=== PATIENT | female | born 1975 | race Caucasian/White ===

== ENCOUNTER → 2019-09-23 | Outpatient (CLI) | payer BC ==
--- NOTE | 2019-09-27 10:29 | Diagnostic Imaging Report ---
INDICATION: Routine screening. Comparison is made with prior mammogram from 03/10/2018. 2-D and 3-D bilateral screening mammography was performed with CAD. Both breasts are heterogeneously dense, limiting the sensitivity of mammography. No mass or malignant-appearing microcalcifications are identified. Axillae are unremarkable. IMPRESSION: BI-RADS Category 1 No mammographic features suspicious for malignancy are identified. ACR BI-RADS Category 1: Negative. Result letter will be mailed to the patient. Note: At least 10% of breast cancer is not imaged by mammography. Dictated by: Dictated on workstation # [id number]
== END ==
LOC: RAD 07:55
PROVIDERS: ATTEND Obstetrics & Gynecology
DX: Z12.31 Encounter for screening mammogram for malignant neoplasm of breast (principal)
CPT/HCPCS: 77067

== ENCOUNTER → 2020-01-21 | Outpatient (CLI) | payer BC ==
[~2020-01-21] MED LIST: FERR-84 PO; MULT-884 PO; PROG200C14 PO
--- NOTE | 2020-01-21 11:03 | Diagnostic Imaging Report ---
PROCEDURE: US Non-ob pelvis comp/trans. TECHNIQUE: Multiple realtime grayscale images were obtained of the pelvis in various projections endovaginally. Transabdominal imaging was also performed. INDICATION: Abnormal uterine bleeding. FINDINGS: The uterus is anteverted measuring 10.1 x 5.4 x 6.7 cm. No myometrial mass is detected. Endometrium is approximately 16 mm in thickness. There is some endometrial heterogeneity. There is a somewhat nodular region adjacent to or arising from within the endometrium measuring 1.7 x 1.2 x 1.6 cm. This does show some internal vascularity. Right ovary measures 3.7 x 2.4 x 2.4 cm and the left ovary measures 4.5 x 1.7 x 2.7 cm. Both ovaries contain small follicles. There is blood flow to both ovaries. No adnexal mass or free fluid is seen. There are small cervical nabothian cysts. IMPRESSION: 1. Endometrial thickening and heterogeneity. There is a 17 mm nodule arising from within or immediately adjacent to the endometrium, suggestive of either endometrial polyp versus submucosal fibroid. No other significant abnormality is detected. Dictated by: Dictated on workstation # [id number]
== END ==
LOC: RAD 08:46
PROVIDERS: ATTEND Obstetrics & Gynecology
DX: E28.2 Polycystic ovarian syndrome (principal); N92.0 Excessive and frequent menstruation with regular cycle; N85.8 Other specified noninflammatory disorders of uterus
CPT/HCPCS: 76830; 76856

== ENCOUNTER 2020-01-26 05:34 | Outpatient (RCR) | payer BC ==
[~2020-01-26] VITALS: Ht 157.5 cm; Wt 100.0 kg
[2020-01-28] MEDS ORDERED: OXYC5TAB96 PO (14:56)
[2020-01-28] MEDS ORDERED: ACET-2267 PO (14:56)
[2020-01-28] MEDS ORDERED: IBUP-1773 PO (14:56)
== END 2020-01-26 12:28 | disposition home or self-care (01) ==
LOC: PREOP 05:34
PROVIDERS: ATTEND Obstetrics & Gynecology
DX: Z01.818 Encounter for other preprocedural examination (principal); Z11.59 Encounter for screening for other viral diseases
CPT/HCPCS: 87635

== ENCOUNTER 2020-01-28 12:00 | Day surgery (SDC) | payer BC ==
[2020-01-28] VITALS (10 sets, daily range): BP systolic 103–150; BP diastolic 66–97
[~2020-01-28] VITALS: Ht 157.5 cm; Wt 100.0 kg
[2020-01-28] MEDS ORDERED: LACTATED RINGERS 1,000 ML IV PRN (12:12)
[2020-01-28] MEDS ORDERED: metroNIDAZOLE 500MG/100ML IVPB 100 ML IV ONE (12:15)
[2020-01-28] MEDS ORDERED: ceFAZolin INJECTION 1,000 MG in WATER (STERILE) FOR INJECTION 10 ML IV ONE (12:15)
--- OUTSIDE RECORDS SUMMARY | 2020-01-28 12:25 | XMS REPORT | CCD ---
Author Author Jess Andres D.O. Organization ANA MARIA ANDRES DO [facility] Address [address] [place] [address] Phone Care Team Providers Care Oil Well Driller Name Role Phone PP Unavailable CCM Unavailable Summary Purpose Interface Exchange Insurance Providers Payer name Policy type / Coverage type Covered alliance party ID Effective Begin Date Effective End Date [facility] [id number] Unknown Family history Grandfather Diagnosis Age At Onset Diabetes mellitus Type 2 Unknown Cerebrovascular disease Unknown Mother Diagnosis Age At Onset No Family Disease Entered N/A Grandmother Diagnosis Age At Onset No Family Disease Entered N/A Father Diagnosis Age At Onset No Family Disease Entered N/A Grandfather Diagnosis Age At Onset Mitral valve prolapse Unknown Social History Social History Element Codes Description Effective Dates Marital status Unknown 04/15/2019 Number of children Unknown 3 04/15/2019 Employment Unknown Currently employed [employer] 04/15/[address]: 643003608 Has never smoked or chewed tobacco 04/15/[address]: 685009 Currently drinks alcohol 04/15 Frequency of drinks SNOMED CT: 080655094 1-4 drinks per week 07/2019 Has the patient ever used illegal drugs? Unknown Has nev er used illegal drugs 04/15/2019 Allergies, Adverse Reactions, Alerts Substance Reaction Codes Entered Date Inactivated Date Status * NO KNOWN ENVIRONMENTAL ALLERGIES Unknown 04/15/2019 N o Inactive Date Active * NO KNOWN DRUG ALLERGIES Unknown 04/15/2019 No Inactiv e Date Active _ Unknown 04/15/2019 No Inactive Date Active Problems Condition Codes Effective Dates Condition Status Acute suppurative otitis media of left ear ICD-9: 382. 00 ICD-10: H66.002 08/26/2019 Active Upper respiratory infection ICD-9: 465.9 ICD-10: J06.9 08/26/2019 Active Encounter for general adult medical examination withou t abnormal findings ICD-9: V70.9 ICD-10: Z00.00 04/19/2019 Active Enteroviral vesicular pharyngitis ICD-9: 074.0 ICD-10: B08.5 04/15/2019 Active Plantar fascial fibromatosis ICD-9: 728.71 ICD-10: M72.2 04/15/2019 Active Sacrococcygeal disorders, not elsewhere classified ICD -9: 724.6 ICD-10: M53.3 04/15/2019 Active Medications Medication Codes Instructions Start Date Stop Date Status Fill Instructions Voltaren 1 % topical gel RxNorm: 045149 1 Gram(s) TOP QID to foot 0 04/15/2019 08/12/2019 Inactive Vitamin D2 oral RxNorm: 4018 oral No Start Date Active Prometrium 200 mg capsule RxNorm: 604583 1 Capsule(s) PO as nee ded No Start Date Active Multivitamin And Mineral tablet RxNorm: 1 Tablet(s) PO QD No Start Date Active Medication Administered No Medication Administered data Immunizations No Immunization data Results Observation Observation Code Item Item Code Result Date S ervice Location COMPREHENSIVE METABOLIC 71274 AST 16 U/L 2018 Unknown COMPREHENSIVE METABOLIC 80061 ALT 19 U/L 2018 Unknown COMPREHENSIVE METABOLIC 48667 BUN 13 mg/dL 2018 Unknown COMPREHENSIVE METABOLIC 59441 ALBUMIN 3.8 g/dL 2018 Unknown COMPREHENSIVE METABOLIC 72067 CHLORIDE 105 mmol/L 04/22 Unknown COMPREHENSIVE METABOLIC 24553 Bili Total 0.5 mg/dL 04/22 Unknown COMPREHENSIVE METABOLIC 05194 ALK PHOS 58 U/L 2018 Unknown COMPREHENSIVE METABOLIC 36374 SODIUM 141 mmol/L 04/22 Unknown COMPREHENSIVE METABOLIC 46989 CREATININE 0.78 mg/dL 04/04 Unknown COMPREHENSIVE METABOLIC 95605 CALCIUM 8.9 mg/dL 2018 Unknown COMPREHENSIVE METABOLIC 78500 POTASSIUM 4.1 mmol/L 04/22 Unknown COMPREHENSIVE METABOLIC 52109 Total Protein 6.4 g/dL Unknown COMPREHENSIVE METABOLIC 80041 Glucose 96 mg/dL 2018 Unknown COMPREHENSIVE METABOLIC 93917 Bicarbonate 27 mmol/L 04/04 Unknown COMPREHENSIVE METABOLIC 71564 AGAP 9 mmol/L 2018 Unknown [facility] 22807 Cholesterol 120 mg/dL 04/22/2019 Unkno wn LIPID GROUP 06417 Triglyceride 107 mg/dL 04/22/2019 Unkn own [facility] 93580 HDL CHOLESTEROL 39 mg/dL 04/22/2019 U nknown L[facility] GROUP 97214 Chol/HDL Ratio 3.08 ratio 04/22/2019 U nknown L[facility] GROUP 91664 NON-HDL Chol 81 mg/dL 04/22/2019 Unkn own [facility] 56445 LDL Cholesterol 60 mg/dL 04/22/2019 U nknown GFR CALC 0571420 GFR Non Afr Amr >60 mL/min 04/22/2019 Un known GFR CALC 8267824 GFR Afr Amr >60 mL/min 04/22/2019 Unknow n COMPLETE BLOOD COUNT 0519908 WBC 8.9 10e9/L 04/19/20 19 Unknown COMPLETE BLOOD COUNT 2791064 RBC 4.77 10e12/L 2018 Unknown COMPLETE BLOOD COUNT 1219578 HEMOGLOBIN 13.4 g/dL 04/19/20 19 Unknown COMPLETE BLOOD COUNT 6362254 HEMATOCRIT 41.2 % 04/19/20 19 Unknown COMPLETE BLOOD COUNT 3031135 MCV 86.4 fL 9 Unknown COMPLETE BLOOD COUNT 0629459 MCH 28.1 pg 9 Unknown COMPLETE BLOOD COUNT 6862903 MCHC 32.5 g/dL 9 Unknown COMPLETE BLOOD COUNT [id number] PLATELET COUNT 292 10e9/L Unknown COMPLETE BLOOD COUNT 0428728 Mean Plt Volume 9.4 fL Unknown COMPLETE BLOOD COUNT 8471514 Neut Auto 68.4 % 9 Unknown COMPLETE BLOOD COUNT 8678517 Lymph Auto 24.4 % 04/19/20 19 Unknown COMPLETE BLOOD COUNT 6578376 [place] Auto 5.2 % 9 Unknown COMPLETE BLOOD COUNT 4118785 RDW 13.5 % 9 Unknown COMPLETE BLOOD COUNT 8492990 Eos Auto 1.7 % 9 Unknown COMPLETE BLOOD COUNT 6892785 Baso Auto 0.3 % 9 Unknown COMPLETE BLOOD COUNT 5976508 Neutrophil Abs 6.09 10e9/L Unknown COMPLETE BLOOD COUNT 0854544 Lymphocyte Abs 2.17 10e9/L Unknown COMPLETE BLOOD COUNT 6241264 Monocyte Abs 0.46 10e9/L 04/04 Unknown COMPLETE BLOOD COUNT 3005880 Eosinophil Abs 0.15 10e9/L Unknown COMPLETE BLOOD COUNT 9819824 RDW-SD 41.2 fL 9 Unknown COMPLETE BLOOD COUNT 0228302 Basophil Abs 0.03 10e9/L 04/04 Unknown FREE T4 17528 T4 Free 0.90 ng/dL 04/19/2019 Unknown THYROID STIMULATING HORMONE 89372 TSH 1.939 uIU/mL 04/19/2019 Unknown Procedures Procedure Codes Date INFLUENZA ASSAY W/OPTIC CPT-4: 03210 08/26/2019 ROUTINE VENIPUNCTURE CPT-4: 14472 04/22/2019 COMPREHEN METABOLIC PANEL CPT-4: 18796 04/22/2019 LIPID PANEL CPT-4: 52617 04/22/2019 ROUTINE VENIPUNCTURE CPT-4: 85014 04/19/2019 ASSAY OF FREE THYROXINE CPT-4: 37386 04/19/2019 ASSAY THYROID STIM HORMONE CPT-4: 63757 04/19/2019 COMPLETE CBC W/AUTO DIFF WBC CPT-4: 85971 04/19/2019 Vital Signs Date Vital 08/26/2019 Blood Pressure 1: 125/80 Code: 8480-6 Heart Rate 1: 117 bpm Respiratory Rate: 16 bpm SpO2: 98% Temperature: 37.3 (C) / 99.2 (F) We ight: 218 lbs 04/15/2019 Blood Pressure 1: 132/80 Code: 8480-6 BMI: 39.6 Code: 38365-6 Heart Rate 1: 72 bpm Height: 5'2" Respiratory Rate: 16 bpm SpO2: 98% Tempera ture: 36.7 (C) / 98.0 (F) Weight: 218 lbs Functional Status No Functional Status data Reason For Visit Reason For Visit Effective Dates Notes cough 08/26/2019 lab draw 04/22/2019 lab draw 04/19/2019 ~generic 04/15/2019 New Patient---establ [facility] care Encounters Encounter Performer Location Codes Date (00724) OFFICE/OUTPATIENT VISIT EST Diagnosis: Acute suppurative otitis media of left ear[ICD10: H66.002] Diagnosis: Upper respiratory infection[ICD10: J06.9] Jazmine ADNRES DO [facility] CPT-4: 33788 08/26/2019 ([id number]) NURSE/OUTPATIENT VISIT EST Diagnosis: Encounter for general adult medical examination without abnormal findings[ICD10: Z00.00] Ana Maria ANDRES [employer] CPT-4: 65498 04/22/2019 ([id number]) NURSE/OUTPATIENT VISIT EST Diagnosis: Encounter for general adult medical examination without abnormal findings[ICD10: Z00.00] Ana Maria ANDRES DO [place] CPT-4: 13641 04/19/2019 OFFICE/OUTPATIENT VISIT NEW Diagnosis: Enteroviral vesicular pharyngitis[ICD10: B08.5] Diagnosis: Plantar fascial fibromatosis[ICD10: M72.2] Diagnosis: Sacrococcygeal disorders, not elsewhere classified[ICD10: M53.3] Ana Maria ANDRES [employer] CPT-4: 86065 04/15/2019 Plan of Care Planned Activity Notes Codes Status Date Visit Diagnosis Plan: Acute suppurative otitis media o f left ear Discussion: patient has augmentin at home which was prescribed for her through [facility] a couple weeks ago for her to take with worsening symptoms but never did. patient informed ok to take for her symptoms to improve the infection. ICD-9 : 382.00 ICD-10 : H66.002 08/26/2019 Visit Diagnosis Plan: Upper respiratory infection Disc ussion: influenza neg. discussed that most likely viral but due to recurrent/chronic sinus pressure and ear infection, can take the augmentin that was prescribed through [facility]. ICD-9 : 465.9 ICD-10 : J06.9 08/26/2019 App[facility]ment: Ana Maria And[facility] [phone] [facility] [facility] 04/22/2019 Appointment: Ana Maria Andres [facility] [phone] [facility] [facility] 04/19/2019 Visit Diagnosis Plan: Plantar fascial fibromatosis Dis cussion: Stretches, Ice, Heal Arch Insert Topical voltaren gel Will return if persists for injections Also discussed podiatry eval if persists and possible custom arch supports ICD-9 : 728.71 ICD-10 : M72.2 04/15/2019 Visit NOS Plan: Plan Notes: Saline nasal flu shes prn. Tyle... Patient Instructions: Recommend updated fasting lab-... 04/15/2019 Visit Diagnosis Plan: Enteroviral vesicular pharyngiti s Discussion: Supportive care--salt water gargles, chloraseptic spray, dayquil/nyquil as needed, notify if more mouth sores develop ICD-9 : 074.0 ICD-10 : B08.5 04/15/2019 Visit Diagnosis Plan: Sacrococcygeal disorders, not el sewhere classified Discussion: Recommend massage/stretches/chiropractor ICD-9 : 724.6 ICD-10 : M53.3 04/15/2019 Appointment: Ana Maria Andres WPtel: [facility] NEW PATIENT 04/15/2019 Patient Education: Voltaren- OptimizeRX Coupon [id number] 2 [email or web address] Completed 04/15/2019 Care Plan: Referral Order SNOMED-CT : 30 [id number] Pending 04/15/2019 Referral: Jess Dietrich WPtel: Via [address] Referral Appointment Requested Instructions No Instructions Medical Equipment No Medical Equipment data Health Concerns Section Health Concerns data not found Goals Section Goals data not found Interventions Section Interventions data not found Health Status Evaluations/Outcomes Section Health Status Evaluations/Outcomes data not found Advance Directives No Advance Directive data
--- OUTSIDE RECORDS SUMMARY | 2020-01-28 12:25 | XMS REPORT | CCD ---
Author Author Jess Andres D.O. Organization ANA MARIA ANDRES DO [facility] Address [address] [place] [address] Phone Care Team Providers Care Parts Clerk Name Role Phone PP Unavailable CCM Unavailable Summary Purpose Interface Exchange Insurance Providers Payer name Policy type / Coverage type Covered libertarian ID Effective Begin Date Effective End Date [facility] [id number] Unknown Family history Grandfather Diagnosis Age At [...] Unknown 3 04/15/2019 Employment Unknown Currently employed [employer] 04/15/[address]: 644765376 Has never smoked or chewed tobacco 04/15/[address]: 235604 Currently drinks alcohol 04/15 Frequency of drinks SNOMED CT: 461323774 1-4 drinks per week 07/2019 Has the [...] Instructions Voltaren 1 % topical gel RxNorm: 442353 1 Gram(s) TOP QID to foot 0 04/15/2019 08/12/2019 Inactive Vitamin D2 oral RxNorm: 4018 oral No Start Date Active Prometrium 200 mg capsule RxNorm: 288161 1 Capsule(s) PO as nee ded No Start Date Active Multivitamin And Mineral tablet RxNorm: 1 Tablet(s) PO QD No Start Date Active Medication Administered No Medication Administered data Immunizations No Immunization data Results Observation Observation Code Item Item Code Result Date S ervice Location COMPREHENSIVE METABOLIC 67869 AST 16 U/L 2018 Unknown COMPREHENSIVE METABOLIC 22682 ALT 19 U/L 2018 Unknown COMPREHENSIVE METABOLIC 41159 BUN 13 mg/dL 2018 Unknown COMPREHENSIVE METABOLIC 21525 ALBUMIN 3.8 g/dL 2018 Unknown COMPREHENSIVE METABOLIC 91921 CHLORIDE 105 mmol/L 04/22 Unknown COMPREHENSIVE METABOLIC 70625 Bili Total 0.5 mg/dL 04/22 Unknown COMPREHENSIVE METABOLIC 17552 ALK PHOS 58 U/L 2018 Unknown COMPREHENSIVE METABOLIC 86120 SODIUM 141 mmol/L 04/22 Unknown COMPREHENSIVE METABOLIC 32227 CREATININE 0.78 mg/dL 04/04 Unknown COMPREHENSIVE METABOLIC 47550 CALCIUM 8.9 mg/dL 2018 Unknown COMPREHENSIVE METABOLIC 10358 POTASSIUM 4.1 mmol/L 04/22 Unknown COMPREHENSIVE METABOLIC 85554 Total Protein 6.4 g/dL Unknown COMPREHENSIVE METABOLIC 35955 Glucose 96 mg/dL 2018 Unknown COMPREHENSIVE METABOLIC 08592 Bicarbonate 27 mmol/L 04/04 Unknown COMPREHENSIVE METABOLIC 37160 AGAP 9 mmol/L 2018 Unknown [facility] 97694 Cholesterol 120 mg/dL 04/22/2019 Unkno wn L[facility] GROUP 58867 Triglyceride 107 mg/dL 04/22/2019 Unkn own [facility] 72044 HDL CHOLESTEROL 39 mg/dL 04/22/2019 U nknown [facility] 02160 Chol/HDL Ratio 3.08 ratio 04/22/2019 U nknown [facility] 47486 NON-HDL Chol 81 mg/dL 04/22/2019 Unkn own [facility] 31902 LDL Cholesterol 60 mg/dL 04/22/2019 U nknown GFR CALC 9667810 GFR Non Afr Amr >60 mL/min 04/22/2019 Un known GFR CALC 3025505 GFR Afr Amr >60 mL/min 04/22/2019 Unknow n COMPLETE BLOOD COUNT 0545098 WBC 8.9 10e9/L 04/19/20 19 Unknown COMPLETE BLOOD COUNT 7593056 RBC 4.77 10e12/L 2018 Unknown COMPLETE BLOOD COUNT 7974481 HEMOGLOBIN 13.4 g/dL 04/19/20 19 Unknown COMPLETE BLOOD COUNT 9987574 HEMATOCRIT 41.2 % 04/19/20 19 Unknown COMPLETE BLOOD COUNT 2184446 MCV 86.4 fL 9 Unknown COMPLETE BLOOD COUNT 9412080 MCH 28.1 pg 9 Unknown COMPLETE BLOOD COUNT 0067463 MCHC 32.5 g/dL 9 Unknown COMPLETE BLOOD COUNT 1665640 PLATELET COUNT 292 10e9/L Unknown COMPLETE BLOOD COUNT 5475701 Mean Plt Volume 9.4 fL Unknown COMPLETE BLOOD COUNT 6389239 Neut Auto 68.4 % 9 Unknown COMPLETE BLOOD COUNT 3328391 Lymph Auto 24.4 % 04/19/20 19 Unknown COMPLETE BLOOD COUNT 2885268 [place] Auto 5.2 % 9 Unknown COMPLETE BLOOD COUNT 1981278 RDW 13.5 % 9 Unknown COMPLETE BLOOD COUNT 5944780 Eos Auto 1.7 % 9 Unknown COMPLETE BLOOD COUNT 6477205 Baso Auto 0.3 % 9 Unknown COMPLETE BLOOD COUNT 6930765 Neutrophil Abs 6.09 10e9/L Unknown COMPLETE BLOOD COUNT 8705064 Lymphocyte Abs 2.17 10e9/L Unknown COMPLETE BLOOD COUNT 6302371 Monocyte Abs 0.46 10e9/L 04/04 Unknown COMPLETE BLOOD COUNT 2481799 Eosinophil Abs 0.15 10e9/L Unknown COMPLETE BLOOD COUNT 2456790 RDW-SD 41.2 fL 9 Unknown COMPLETE BLOOD COUNT 6964960 Basophil Abs 0.03 10e9/L 04/04 Unknown FREE T4 43927 T4 Free 0.90 ng/dL 04/19/2019 Unknown THYROID STIMULATING HORMONE 64230 TSH 1.939 uIU/mL 04/19/2019 Unknown Procedures Procedure Codes Date INFLUENZA ASSAY W/OPTIC CPT-4: 03965 08/26/2019 ROUTINE VENIPUNCTURE CPT-4: 25603 04/22/2019 COMPREHEN METABOLIC PANEL CPT-4: 61174 04/22/2019 LIPID PANEL CPT-4: 55481 04/22/2019 ROUTINE VENIPUNCTURE CPT-4: 28769 04/19/2019 ASSAY OF FREE THYROXINE CPT-4: 80453 04/19/2019 ASSAY THYROID STIM HORMONE CPT-4: 31574 04/19/2019 COMPLETE CBC W/AUTO DIFF WBC CPT-4: 15792 04/19/2019 Vital Signs Date Vital 08/26/2019 Blood Pressure 1: 125/80 Code: 8480-6 Heart Rate 1: 117 bpm Respiratory Rate: 16 bpm SpO2: 98% Temperature: 37.3 (C) / 99.2 (F) We ight: 218 lbs 04/15/2019 Blood Pressure 1: 132/80 Code: 8480-6 BMI: 39.6 Code: 05824-9 Heart Rate 1: 72 bpm Height: 5'2" Respiratory Rate: 16 bpm SpO2: 98% Tempera ture: 36.7 (C) / 98.0 (F) Weight: 218 lbs Functional Status No Functional Status data Reason For Visit Reason For Visit Effective Dates Notes cough 08/26/2019 lab draw 04/22/2019 lab draw 04/19/2019 ~generic 04/15/2019 New Patient---establ [facility] care Encounters Encounter Performer Location Codes Date (85936) OFFICE/OUTPATIENT VISIT EST Diagnosis: Acute suppurative otitis media of left ear[ICD10: H66.002] Diagnosis: Upper respiratory infection[ICD10: J06.9] Jazmine ANDRES DO [facility] CPT-4: 29772 08/26/2019 ([id number]) NURSE/OUTPATIENT VISIT EST Diagnosis: Encounter for general adult medical examination without abnormal findings[ICD10: Z00.00] Ana Maria ANDRES [employer] CPT-4: 69552 04/22/2019 ([id number]) NURSE/OUTPATIENT VISIT EST Diagnosis: Encounter for general adult medical examination without abnormal findings[ICD10: Z00.00] Ana Maria ANDRES DO [employer] CPT-4: 73818 04/19/2019 OFFICE/OUTPATIENT VISIT NEW Diagnosis: Enteroviral vesicular pharyngitis[ICD10: B08.5] Diagnosis: Plantar fascial fibromatosis[ICD10: M72.2] Diagnosis: Sacrococcygeal disorders, not elsewhere classified[ICD10: M53.3] Ana Maria ANDRES [employer] CPT-4: 35668 04/15/2019 Plan of Care Planned Activity Notes [...] 08/26/2019 [facility]ment: Ana Maria And[facility] [phone] [facility] [facility] 04/22/2019 Appointment: Ana Maria Andres [facility]el[facility] [address] [facility] [facility] 04/19/2019 Visit Diagnosis Plan: Plantar [...] M53.3 04/15/2019 Appointment: Ana Maria Andres WPtel: [facility] NEW PATIENT 04/15/2019 Patient Education: Voltaren- OptimizeRX Coupon [id number] 2 [email or web address] Completed 04/15/2019 Care Plan: Referral Order SNOMED-CT : 30 8814699 Pending 04/15/2019 Referral: Jess Dietrich WPtel: Via [address] Referral Appointment Requested Instructions No Instructions Medical Equipment No Medical Equipment data Health Concerns Section Health Concerns data not found Goals Section Goals data not found Interventions Section Interventions data not found Health Status Evaluations/Outcomes Section Health Status Evaluations/Outcomes data not found Advance Directives No Advance Directive data
--- OUTSIDE RECORDS SUMMARY | 2020-01-28 12:25 | XMS REPORT | CCD ---
Author Author Jess Andres D.O. Organization ANA MARIA ANDRES DO [facility] Address [address] [place] [address] Phone Care Team Providers Care Dining Room Host Name Role Phone PP Unavailable CCM Unavailable Summary Purpose Interface Exchange Insurance Providers Payer name Policy type / Coverage type Covered republican ID Effective Begin Date Effective End Date [facility] [id number] Unknown Family history Grandfather Diagnosis Age At [...] Unknown 3 04/15/2019 Employment Unknown Currently employed [employer] 04/15/[address]: 997406568 Has never smoked or chewed tobacco 04/15/[address]: 061012 Currently drinks alcohol 04/15 Frequency of drinks SNOMED CT: 858619617 1-4 drinks per week 07/2019 Has the [...] Instructions Voltaren 1 % topical gel RxNorm: 455376 1 Gram(s) TOP QID to foot 0 04/15/2019 08/12/2019 Inactive Vitamin D2 oral RxNorm: 4018 oral No Start Date Active Prometrium 200 mg capsule RxNorm: 431443 1 Capsule(s) PO as nee ded No Start Date Active Multivitamin And Mineral tablet RxNorm: 1 Tablet(s) PO QD No Start Date Active Medication Administered No Medication Administered data Immunizations No Immunization data Results Observation Observation Code Item Item Code Result Date S ervice Location COMPREHENSIVE METABOLIC 91184 AST 16 U/L 2018 Unknown COMPREHENSIVE METABOLIC 13062 ALT 19 U/L 2018 Unknown COMPREHENSIVE METABOLIC 23081 BUN 13 mg/dL 2018 Unknown COMPREHENSIVE METABOLIC 56389 ALBUMIN 3.8 g/dL 2018 Unknown COMPREHENSIVE METABOLIC 93874 CHLORIDE 105 mmol/L 04/22 Unknown COMPREHENSIVE METABOLIC 78802 Bili Total 0.5 mg/dL 04/22 Unknown COMPREHENSIVE METABOLIC 99549 ALK PHOS 58 U/L 2018 Unknown COMPREHENSIVE METABOLIC 72354 SODIUM 141 mmol/L 04/22 Unknown COMPREHENSIVE METABOLIC 17004 CREATININE 0.78 mg/dL 04/04 Unknown COMPREHENSIVE METABOLIC 44674 CALCIUM 8.9 mg/dL 2018 Unknown COMPREHENSIVE METABOLIC 97640 POTASSIUM 4.1 mmol/L 04/22 Unknown COMPREHENSIVE METABOLIC 55305 Total Protein 6.4 g/dL Unknown COMPREHENSIVE METABOLIC 27537 Glucose 96 mg/dL 2018 Unknown COMPREHENSIVE METABOLIC 61690 Bicarbonate 27 mmol/L 04/04 Unknown COMPREHENSIVE METABOLIC 13685 AGAP 9 mmol/L 2018 Unknown [facility] 66948 Cholesterol 120 mg/dL 04/22/2019 Unkno wn [facility] 85114 Triglyceride 107 mg/dL 04/22/2019 Unkn own [facility] 57207 HDL CHOLESTEROL 39 mg/dL 04/22/2019 U nknown [facility] 23726 Chol/HDL Ratio 3.08 ratio 04/22/2019 U nknown [facility] 02276 NON-HDL Chol 81 mg/dL 04/22/2019 Unkn own [facility] 08055 LDL Cholesterol 60 mg/dL 04/22/2019 U nknown GFR CALC 9092933 GFR Non Afr Amr >60 mL/min 04/22/2019 Un known GFR CALC 7343522 GFR Afr Amr >60 mL/min 04/22/2019 Unknow n COMPLETE BLOOD COUNT 6325427 WBC 8.9 10e9/L 04/19/20 19 Unknown COMPLETE BLOOD COUNT 8039468 RBC 4.77 10e12/L 2018 Unknown COMPLETE BLOOD COUNT 9293789 HEMOGLOBIN 13.4 g/dL 04/19/20 19 Unknown COMPLETE BLOOD COUNT 2308663 HEMATOCRIT 41.2 % 04/19/20 19 Unknown COMPLETE BLOOD COUNT 0146258 MCV 86.4 fL 9 Unknown COMPLETE BLOOD COUNT 2136168 MCH 28.1 pg 9 Unknown COMPLETE BLOOD COUNT 6860282 MCHC 32.5 g/dL 9 Unknown COMPLETE BLOOD COUNT 5832500 PLATELET COUNT 292 10e9/L Unknown COMPLETE BLOOD COUNT 9970158 Mean Plt Volume 9.4 fL Unknown COMPLETE BLOOD COUNT 7354494 Neut Auto 68.4 % 9 Unknown COMPLETE BLOOD COUNT 0079498 Lymph Auto 24.4 % 04/19/20 19 Unknown COMPLETE BLOOD COUNT 6552534 [facility] Auto 5.2 % 9 Unknown COMPLETE BLOOD COUNT 3739836 RDW 13.5 % 9 Unknown COMPLETE BLOOD COUNT 6156166 Eos Auto 1.7 % 9 Unknown COMPLETE BLOOD COUNT 3954295 Baso Auto 0.3 % 9 Unknown COMPLETE BLOOD COUNT 1619661 Neutrophil Abs 6.09 10e9/L Unknown COMPLETE BLOOD COUNT 2643918 Lymphocyte Abs 2.17 10e9/L Unknown COMPLETE BLOOD COUNT 7936583 Monocyte Abs 0.46 10e9/L 04/04 Unknown COMPLETE BLOOD COUNT 2006665 Eosinophil Abs 0.15 10e9/L Unknown COMPLETE BLOOD COUNT 0354926 RDW-SD 41.2 fL 9 Unknown COMPLETE BLOOD COUNT 7799096 Basophil Abs 0.03 10e9/L 04/04 Unknown FREE T4 98508 T4 Free 0.90 ng/dL 04/19/2019 Unknown THYROID STIMULATING HORMONE 19623 TSH 1.939 uIU/mL 04/19/2019 Unknown Procedures Procedure Codes Date INFLUENZA ASSAY W/OPTIC CPT-4: 44463 08/26/2019 ROUTINE VENIPUNCTURE CPT-4: 60047 04/22/2019 COMPREHEN METABOLIC PANEL CPT-4: 79282 04/22/2019 LIPID PANEL CPT-4: 97626 04/22/2019 ROUTINE VENIPUNCTURE CPT-4: 22422 04/19/2019 ASSAY OF FREE THYROXINE CPT-4: 09030 04/19/2019 ASSAY THYROID STIM HORMONE CPT-4: 88843 04/19/2019 COMPLETE CBC W/AUTO DIFF WBC CPT-4: 94798 04/19/2019 Vital Signs Date Vital 08/26/2019 Blood Pressure 1: 125/80 Code: 8480-6 Heart Rate 1: 117 bpm Respiratory Rate: 16 bpm SpO2: 98% Temperature: 37.3 (C) / 99.2 (F) We ight: 218 lbs 04/15/2019 Blood Pressure 1: 132/80 Code: 8480-6 BMI: 39.6 Code: 31965-8 Heart Rate 1: 72 bpm Height: 5'2" Respiratory Rate: 16 bpm SpO2: 98% Tempera ture: 36.7 (C) / 98.0 (F) Weight: 218 lbs Functional Status No Functional Status data Reason For Visit Reason For Visit Effective Dates Notes cough 08/26/2019 lab draw 04/22/2019 lab draw 04/19/2019 ~generic 04/15/2019 New Patient---establ [facility] care Encounters Encounter Performer Location Codes Date (25164) OFFICE/OUTPATIENT VISIT EST Diagnosis: Acute suppurative otitis media of left ear[ICD10: H66.002] Diagnosis: Upper respiratory infection[ICD10: J06.9] Jazmine ANDRES DO [facility] CPT-4: 34941 08/26/2019 ([id number]) NURSE/OUTPATIENT VISIT EST Diagnosis: Encounter for general adult medical examination without abnormal findings[ICD10: Z00.00] Ana Maria ANDRES [email or web address] CPT-4: 76732 04/22/2019 ([id number]) NURSE/OUTPATIENT VISIT EST Diagnosis: Encounter for general adult medical examination without abnormal findings[ICD10: Z00.00] Ana Maria ANDRES DO [employer] CPT-4: 66563 04/19/2019 OFFICE/OUTPATIENT VISIT NEW Diagnosis: Enteroviral vesicular pharyngitis[ICD10: B08.5] Diagnosis: Plantar fascial fibromatosis[ICD10: M72.2] Diagnosis: Sacrococcygeal disorders, not elsewhere classified[ICD10: M53.3] Ana Maria ANDRES [email or web address] CPT-4: 89133 04/15/2019 Plan of Care Planned Activity Notes [...] 08/26/2019 Appointment: Ana Maria Andres W[facility]el[facility] [phone] [facility] [place] [facility] 04/22/2019 Appointment: Ana Maria Andres WPtel: [phone] [facility] [place] 04/19/2019 Visit Diagnosis Plan: Plantar [...] M53.3 04/15/2019 Appointment: Ana Maria Andres WPtel: [facility] NEW PATIENT 04/15/2019 Patient Education: Voltaren- [employer] Coupon [id number] [email or web address] Completed 04/15/2019 Care Plan: Referral Order SNOMED-CT : 30 2785695 Pending 04/15/2019 Referral: Jess Dietrich WPtel: Via [address] Referral Appointment Requested Instructions No Instructions Medical Equipment No Medical Equipment data Health Concerns Section Health Concerns data not found Goals Section Goals data not found Interventions Section Interventions data not found Health Status Evaluations/Outcomes Section Health Status Evaluations/Outcomes data not found Advance Directives No Advance Directive data
--- OUTSIDE RECORDS SUMMARY | 2020-01-28 12:25 | XMS REPORT | CCD ---
Author Author Jess Andres D.O. Organization ANA MARIA ANDRES DO [facility] Address [address] [place] [address] Phone Care Team Providers Care Service Engineer Name Role Phone PP Unavailable CCM Unavailable Summary Purpose Interface Exchange Insurance Providers Payer name Policy type / Coverage type Covered green party ID Effective Begin Date Effective End Date [facility] [id number] Unknown Family history Grandfather Diagnosis Age At [...] Unknown 3 04/15/2019 Employment Unknown Currently employed [employer] 04/15/[address]: 083799231 Has never smoked or chewed tobacco 04/15/[address]: 210992 Currently drinks alcohol 04/15 Frequency of drinks SNOMED CT: 849346820 1-4 drinks per week 07/2019 Has the [...] Instructions Voltaren 1 % topical gel RxNorm: 255136 1 Gram(s) TOP QID to foot 0 04/15/2019 08/12/2019 Inactive Vitamin D2 oral RxNorm: 4018 oral No Start Date Active Prometrium 200 mg capsule RxNorm: 161988 1 Capsule(s) PO as nee ded No Start Date Active Multivitamin And Mineral tablet RxNorm: 1 Tablet(s) PO QD No Start Date Active Medication Administered No Medication Administered data Immunizations No Immunization data Results Observation Observation Code Item Item Code Result Date S ervice Location COMPREHENSIVE METABOLIC 90404 AST 16 U/L 2018 Unknown COMPREHENSIVE METABOLIC 48590 ALT 19 U/L 2018 Unknown COMPREHENSIVE METABOLIC 20122 BUN 13 mg/dL 2018 Unknown COMPREHENSIVE METABOLIC 50963 ALBUMIN 3.8 g/dL 2018 Unknown COMPREHENSIVE METABOLIC 22401 CHLORIDE 105 mmol/L 04/22 Unknown COMPREHENSIVE METABOLIC 32770 Bili Total 0.5 mg/dL 04/22 Unknown COMPREHENSIVE METABOLIC 00154 ALK PHOS 58 U/L 2018 Unknown COMPREHENSIVE METABOLIC 76020 SODIUM 141 mmol/L 04/22 Unknown COMPREHENSIVE METABOLIC 29180 CREATININE 0.78 mg/dL 04/04 Unknown COMPREHENSIVE METABOLIC 80187 CALCIUM 8.9 mg/dL 2018 Unknown COMPREHENSIVE METABOLIC 25886 POTASSIUM 4.1 mmol/L 04/22 Unknown COMPREHENSIVE METABOLIC 12099 Total Protein 6.4 g/dL Unknown COMPREHENSIVE METABOLIC 10620 Glucose 96 mg/dL 2018 Unknown COMPREHENSIVE METABOLIC 41552 Bicarbonate 27 mmol/L 04/04 Unknown COMPREHENSIVE METABOLIC 38022 AGAP 9 mmol/L 2018 Unknown [facility] 25593 Cholesterol 120 mg/dL 04/22/2019 Unkno wn [facility] 72263 Triglyceride 107 mg/dL 04/22/2019 Unkn own [facility] 25751 HDL CHOLESTEROL 39 mg/dL 04/22/2019 U nknown [facility] 04034 Chol/HDL Ratio 3.08 ratio 04/22/2019 U nknown [facility] 80181 NON-HDL Chol 81 mg/dL 04/22/2019 Unkn own [facility] 44365 LDL Cholesterol 60 mg/dL 04/22/2019 U nknown GFR CALC 2115994 GFR Non Afr Amr >60 mL/min 04/22/2019 Un known GFR CALC 3349360 GFR Afr Amr >60 mL/min 04/22/2019 Unknow n COMPLETE BLOOD COUNT 7415179 WBC 8.9 10e9/L 04/19/20 19 Unknown COMPLETE BLOOD COUNT 6505997 RBC 4.77 10e12/L 2018 Unknown COMPLETE BLOOD COUNT 8728543 HEMOGLOBIN 13.4 g/dL 04/19/20 19 Unknown COMPLETE BLOOD COUNT 0406655 HEMATOCRIT 41.2 % 04/19/20 19 Unknown COMPLETE BLOOD COUNT 2564106 MCV 86.4 fL 9 Unknown COMPLETE BLOOD COUNT 7302194 MCH 28.1 pg 9 Unknown COMPLETE BLOOD COUNT 7806654 MCHC 32.5 g/dL 9 Unknown COMPLETE BLOOD COUNT 7023162 PLATELET COUNT 292 10e9/L Unknown COMPLETE BLOOD COUNT 0887914 Mean Plt Volume 9.4 fL Unknown COMPLETE BLOOD COUNT 0046813 Neut Auto 68.4 % 9 Unknown COMPLETE BLOOD COUNT 4288106 Lymph Auto 24.4 % 04/19/20 19 Unknown COMPLETE BLOOD COUNT 9528202 Daniels Auto 5.2 % 9 Unknown COMPLETE BLOOD COUNT 0744004 RDW 13.5 % 9 Unknown COMPLETE BLOOD COUNT 2388815 Eos Auto 1.7 % 9 Unknown COMPLETE BLOOD COUNT 0998180 Baso Auto 0.3 % 9 Unknown COMPLETE BLOOD COUNT 9688756 Neutrophil Abs 6.09 10e9/L Unknown COMPLETE BLOOD COUNT 4056994 Lymphocyte Abs 2.17 10e9/L Unknown COMPLETE BLOOD COUNT 2683032 Monocyte Abs 0.46 10e9/L 04/04 Unknown COMPLETE BLOOD COUNT 1304550 Eosinophil Abs 0.15 10e9/L Unknown COMPLETE BLOOD COUNT 1538607 RDW-SD 41.2 fL 9 Unknown COMPLETE BLOOD COUNT 1086383 Basophil Abs 0.03 10e9/L 04/04 Unknown FREE T4 82687 T4 Free 0.90 ng/dL 04/19/2019 Unknown THYROID STIMULATING HORMONE 67862 TSH 1.939 uIU/mL 04/19/2019 Unknown Procedures Procedure Codes Date INFLUENZA ASSAY W/OPTIC CPT-4: 13403 08/26/2019 ROUTINE VENIPUNCTURE CPT-4: 02091 04/22/2019 COMPREHEN METABOLIC PANEL CPT-4: 40034 04/22/2019 LIPID PANEL CPT-4: 65338 04/22/2019 ROUTINE VENIPUNCTURE CPT-4: 44867 04/19/2019 ASSAY OF FREE THYROXINE CPT-4: 86969 04/19/2019 ASSAY THYROID STIM HORMONE CPT-4: 50598 04/19/2019 COMPLETE CBC W/AUTO DIFF WBC CPT-4: 19650 04/19/2019 Vital Signs Date Vital 08/26/2019 Blood Pressure 1: 125/80 Code: 8480-6 Heart Rate 1: 117 bpm Respiratory Rate: 16 bpm SpO2: 98% Temperature: 37.3 (C) / 99.2 (F) We ight: 218 lbs 04/15/2019 Blood Pressure 1: 132/80 Code: 8480-6 BMI: 39.6 Code: 99414-0 Heart Rate 1: 72 bpm Height: 5'2" Respiratory Rate: 16 bpm SpO2: 98% Tempera ture: 36.7 (C) / 98.0 (F) Weight: 218 lbs Functional Status No Functional Status data Reason For Visit Reason For Visit Effective Dates Notes cough 08/26/2019 lab draw 04/22/2019 lab draw 04/19/2019 ~generic 04/15/2019 New Patient---establ [facility] care Encounters Encounter Performer Location Codes Date (20675) OFFICE/OUTPATIENT VISIT EST Diagnosis: Acute suppurative otitis media of left ear[ICD10: H66.002] Diagnosis: Upper respiratory infection[ICD10: J06.9] Jazmine ANDRES DO [facility] CPT-4: 97083 08/26/2019 ([id number]) NURSE/OUTPATIENT VISIT EST Diagnosis: Encounter for general adult medical examination without abnormal findings[ICD10: Z00.00] Ana Maria ANDRES [employer] CPT-4: 49563 04/22/2019 ([id number]) NURSE/OUTPATIENT VISIT EST Diagnosis: Encounter for general adult medical examination without abnormal findings[ICD10: Z00.00] Ana Maria ANDRES DO [facility] CPT-4: 84222 04/19/2019 OFFICE/OUTPATIENT VISIT NEW Diagnosis: Enteroviral vesicular pharyngitis[ICD10: B08.5] Diagnosis: Plantar fascial fibromatosis[ICD10: M72.2] Diagnosis: Sacrococcygeal disorders, not elsewhere classified[ICD10: M53.3] Ana Maria ANDRES [employer] CPT-4: 13464 04/15/2019 Plan of Care Planned Activity Notes [...] 08/26/2019 Appointment: Ana Maria And[facility] [phone] [facility] [facility] 04/22/2019 Appointment: Ana Maria Andres WPtel: [phone] [facility] [facility] 04/19/2019 Visit Diagnosis Plan: Plantar [...] M53.3 04/15/2019 Appointment: Ana Maria Andres W[facility]el: [facility] [address] [facility] NEW PATIENT 04/15/2019 Patient Education: Voltaren- [employer] Coupon [id number] [email or web address] Completed 04/15/2019 Care Plan: Referral Order SNOMED-CT : 30 8893997 Pending 04/15/2019 Referral: Jess Dietrich WPtel: Via [address] Referral Appointment Requested Instructions No Instructions Medical Equipment No Medical Equipment data Health Concerns Section Health Concerns data not found Goals Section Goals data not found Interventions Section Interventions data not found Health Status Evaluations/Outcomes Section Health Status Evaluations/Outcomes data not found Advance Directives No Advance Directive data
--- OUTSIDE RECORDS SUMMARY | 2020-01-28 12:25 | XMS REPORT | CCD ---
Author Author Jess Andres D.O. Organization [facility] Address [address] [place] [address] Phone Care Team Providers Care Clinical Dermatologist Name Role Phone PP Unavailable CCM Unavailable Summary Purpose Interface Exchange Insurance Providers Payer name Policy type / Coverage type Covered democrat ID Effective Begin Date Effective End Date Blue Cross Blue [facility] Blue Cross/[facility] [place] [facility] [id number] Un known Family history Grandfather Diagnosis Age At Onset [...] Codes Description Effective Dates Marital status Unknown M arried 04/15/2019 Number of children Unknown 3 04/15/2019 Employment Unknown Curre ntly employed [employer] [facility] 04/15/[address]: 220254210 Has never smoked or chewed tobacco 04/15/[address]: 561608 Currently drinks alcohol 04/15/2019 Frequency of drinks SNOMED CT: 625335310 1-4 drinks per week 04/15/2019 Has the patient ever used illegal drugs? Unknown Has never used illegal drugs 019 Allergies, Adverse Reactions, Alerts Substance Reaction Codes Entered Date Inactivated Date Status _ Unknown 04/15/2019 No Inactive Date Active * NO KNOWN ENVIRONME NTAL ALLERGIES Unknown 04/15/2019 No Inactive Date Active * NO KNOWN DRUG RAGHAVENDRA RGIES Unknown 04/15/2019 No Inactive Date Active Past Medical History Illness Codes Condition Status Onset Date Resolved Date Encounter for genera l adult medical examination without abnormal findings ICD-9: V70.9 ICD-10: Z00.00 Active 04/19/2019 Unknown Enteroviral vesicula r pharyngitis ICD-9: 074.0 ICD-10: B08.5 Active 04/15/2019 Unknown Plantar fascial fibr omatosis ICD-9: 728.71 ICD-10: M72.2 Active 04/15/2019 Unknown Sacrococcygeal disor ders, not elsewhere classified ICD-9: 724.6 ICD-10: M53.3 Active 04/15/2019 Unknown Problems Condition Codes Effectiv e Dates Condition Status Encounter for genera l adult medical examination without abnormal findings ICD-9: V70.9 ICD-10: Z00.00 04/19/2019 Active Enteroviral vesicula r pharyngitis ICD-9: 074.0 ICD-10: B08.5 04/15/2019 Active Plantar fascial fibr omatosis ICD-9: 728.71 ICD-10: M72.2 04/15/2019 Active Sacrococcygeal disor ders, not elsewhere classified ICD-9: 724.6 ICD-10: M53.3 04/15/2019 Active Medications Medication Codes Instruc tions Start Date Stop Date Sta tus Fill Instructions Voltaren 1 % topical gel RxNorm: 536476 1 Gram(s) TOP QID to foot 04/15/2019 08/12/2019 Active Vitamin D2 oral RxNorm: 4018 oral No Start Date Active Prometrium 200 mg ca psule RxNorm: 831369 1 Capsule(s) PO as needed No Start Date Active Multivitamin And Min eral tablet RxNorm: 1 Tablet(s) PO QD No Start Date Active Medication Administered No Medication Administered data Immunizations No Immunization data Assessments Condition Codes Effectiv e Dates Encounter for general adult medical exam ination without abnormal findings ICD-10: Z00.00 ICD-9: V70.9 04/19/2019 Sacrococcygeal disorders, not elsewhere classified ICD-10: M53.3 ICD-9: 724.6 04/15/2019 Enteroviral vesicular pharyngitis IC D-10: B08.5 ICD-9: 074.0 04/15/2019 Plantar fascial fibromatosis ICD-10: M72.2 ICD-9: 728.71 04/15/2019 Reason For Visit Reason For Visit Effective Dates Notes lab draw 04/19/2019 ~generic 04/15/2019 New Patient---establishing care Results Observation Observation Code Item Item Code Result Date COMPLETE BLOOD COUNT [id number] WBC 8.9 10e9/L 04/19/2019 COMPLETE BLOOD COUNT 6009387 RBC 4.77 10e12/L 9 COMPLETE BLOOD COUNT 5729207 HEMOGLOBIN 13.4 g/dL 04/19/2019 COMPLETE BLOOD COUNT 8820875 HEMATOCRIT 41.2 % 04/19/2019 COMPLETE BLOOD COUNT 2843729 MCV 86.4 fL 04/19/2019 COMPLETE BLOOD COUNT 8866969 MCH 28.1 pg 04/19/2019 COMPLETE BLOOD COUNT 5276273 MCHC 32.5 g/dL 04/19/2019 COMPLETE BLOOD COUNT 9574145 PLATELET COUNT 292 10e9/L 04/19/2019 COMPLETE BLOOD COUNT 2767022 Mean Plt Volume 9.4 fL 04/19/2019 COMPLETE BLOOD COUNT 2645547 Neut Auto 68.4 % 04/19/2019 COMPLETE BLOOD COUNT 3127127 Lymph Auto 24.4 % 04/19/2019 COMPLETE BLOOD COUNT 6715975 [place] Auto 5.2 % 04/19/2019 COMPLETE BLOOD COUNT 3668751 RDW 13.5 % 04/19/2019 COMPLETE BLOOD COUNT 1025414 Eos Auto 1.7 % 04/19/2019 COMPLETE BLOOD COUNT 6542735 Baso Auto 0.3 % 04/19/2019 COMPLETE BLOOD COUNT 7592035 Neutrophil Abs 6.09 10e9/L 04/19/2019 COMPLETE BLOOD COUNT 6692699 Lymphocyte Abs 2.17 10e9/L 04/19/2019 COMPLETE BLOOD COUNT [id number] Monocyte Abs 0.46 10e9/L 04/19/2019 COMPLETE BLOOD COUNT 0711645 Eosinophil Abs 0.15 10e9/L 04/19/2019 COMPLETE BLOOD COUNT 5177264 RDW-SD 41.2 fL 04/19/2019 COMPLETE BLOOD COUNT 1448869 Basophil Abs 0.03 10e9/L 04/19/2019 Review of Systems System Result Effective Dates Neurologic headache 04/04 Respiratory No wheezing 04/15/2019 Respiratory No productive sputum 04/15/2019 Respiratory No pleuritic pain 04/15/2019 Respiratory No dyspnea 0 04/15/2019 Respiratory No cough 07/2019 Respiratory No asthma Ears/Nose/Throat/Neck sinusitis 04/15/2019 Ears/Nose/Throat/Neck sinus congestion 04/15/2019 Constitutional fatigue 0 04/15/2019 Musculoskeletal bone pain 04/15/2019 Musculoskeletal back pain 04/15/2019 Cardiovascular No arrhythmia 04/15/2019 Cardiovascular No chest pain/pressure 04/15/2019 Cardiovascular No edema 04/15/2019 Cardiovascular No exercise intolerance 04/15/2019 Cardiovascular No orthopnea 04/15/2019 Cardiovascular No palpitations 04/15/2019 Gastrointestinal No hemorrhoids 04/15/2019 Gastrointestinal No hepatitis 04/15/2019 Gastrointestinal No abdominal pain 04/15/2019 Gastrointestinal No constipation 04/15/2019 Gastrointestinal No diarrhea 04/15/2019 Gastrointestinal No gastroesophageal reflu x 04/15/2019 Gastrointestinal No melena 04/15/2019 Gastrointestinal No nausea 04/15/2019 Gastrointestinal No vomiting 04/15/2019 Genitourinary/Nephrology No dysuria 04/15/2019 Genitourinary/Nephrology No nocturia 04/15/2019 Genitourinary/Nephrology No urinary incontinence 04/15/2019 Dermatologic No rash 07/2019 Dermatologic No scar 07/2019 Psychiatric No anxiety 0 04/15/2019 Psychiatric No depression 04/15/2019 Endocrine No goiter 04/04 Endocrine No hyperglycemia 04/15/2019 Endocrine No hypoglycemia 04/15/2019 Physical Exam Exam Name System Name It em Name Status Result Effective Dates Notes Full Exam - General Psychiatric mood and affect Overall: normal mood and affect 04/15/2019 None Full Exam - General Neurologic mental status Overall: oriented 04/15/2019 None Full Exam - General Neurologic mental status Overall: alert 9 None Full Exam - General Lymphatic neck nodes Right anterior cervical chain: tende r 04/15/2019 None Full Exam - General Lymphatic neck nodes Right anterior cervical chain: shott y 04/15/2019 None Full Exam - General Lymphatic neck nodes Left anterior cervical chain: tender 04/15/2019 None Full Exam - General Lymphatic neck nodes Left anterior cervical chain: shotty 04/15/2019 None Full Exam - General Cardiovascular auscultation of heart Overall: no murmurs 04/15/2019 None Full Exam - General Cardiovascular auscultation of heart Overall: normal heart sounds 04/15/2019 None Full Exam - General Cardiovascular auscultation of heart Overall: regular rate 04/15/2019 None Full Exam - General Respiratory auscultation Overall: breath sounds clear bilater ally 04/15/2019 None Full Exam - General Neck inspection of neck Overall: no masses 04/15/2019 None Full Exam - General Neck inspection of neck Overall: normal size 04/15/2019 None Full Exam - General Ears/Nose/Throat oral cavity/pharynx/larynx Oropharynx: postnasal drainage 04/15/2019 None Full Exam - General Ears/Nose/Throat internal nose Drainage: cloudy 04/15/2019 None Full Exam - General Ears/Nose/Throat internal nose Turbinates: hypertrophy 04/15/2019 None Full Exam - General Ears/Nose/Throat internal nose Turbinates: erythema 04/15/2019 None Full Exam - General Ears/Nose/Throat otoscopic exam Right tympanic membrane: air- fluid level 04/15/2019 None Full Exam - General Ears/Nose/Throat otoscopic exam Left tympanic membrane: air- fluid level 04/15/2019 None Full Exam - General Ears/Nose/Throat otoscopic exam Overall: external auditory canals clear 04/15/2019 None Full Exam - General Constitutional general appearance Overall: in no acute distress 04/15/2019 None Full Exam - General Constitutional general appearance Overall: well developed 04/15/2019 None Full Exam - General Constitutional general appearance Overall: well nourished 04/15/2019 None Full Exam - General Abdomen abdominal exam Overall: no masses 04/15/2019 None Full Exam - General Abdomen abdominal exam Overall: no tenderness 04/15/2019 None Full Exam - General Abdomen abdominal exam Overall: normal bowel sounds 04/15/2019 None Full Exam - General Abdomen abdominal exam Overall: soft 04/15/2019 None Full Exam - General Musculoskeletal gait and station Overall: normal gait 04/15/2019 None Full Exam - General Musculoskeletal gait and station Overall: normal station 04/15/2019 None Full Exam - General Musculoskeletal right lower extremity Palpation - right foot: tender 04/15/2019 heel Full Exam - General Musculoskeletal left lower extremity Palpation - left foot: tender 04/15/2019 heel Full Exam - General Musculoskeletal spine, ribs and pelvis Posture: pelvic tilt 04/15/2019 rotated sacrum Full Exam - General Ears/Nose/Throat oral cavity/pharynx/larynx Oropharynx: erythema 04/15/2019 with small ulcer to right of uvula Procedures Procedure Codes Date ROUTINE VENIPUNCTURE CPT-4: 37287 04/19/2019 ASSAY OF FREE THYROXINE CPT-4: 59704 04/19/2019 ASSAY THYROID STIM H ORMONE CPT-4: 05949 04/19/2019 COMPLETE CBC W/AUTO DIFF WBC CPT-4: 46197 04/19/2019 Vital Signs Date Vital 04/15/2019 Blood Pressure 1: 132/80 Code: 8480-6 BMI: 39.6 Code: 20166-8 Heart Rate 1: 72 bpm Height: 5'2" Respiratory Rate: 16 bpm SpO2: 98% Temperature: 36.7 (C ) / 98.0 (F) Weight: 218 lbs Functional Status No Functional Status data History of Present Illness Symptom Name Status Resu lt Effective Date Notes Location on the right 04/15/2019 None Location on the left 04/15/2019 None Quality throbbing 04/15/2019 None Onset and Resolution o ngoing. 04/15/2019 Patient feels like this i s plantar fascitis Onset and Resolution g radual in onset 04/15/2019 None Location sacral spine 04/15/2019 None Quality discomfort 04/15/2019 None Location on the left 04/15/2019 None Quality acute 04/15/2019 None Location on the left 04/15/2019 None Quality pressure 04/15/2019 None Quality pain 04/15/2019 None Quality acute 04/15/2019 None Location diffusely 04/15/2019 None Quality acute 04/15/2019 None Location on both sides 04/15/2019 None Quality sharp 04/15/2019 None Advance Directives No Advance Directive data Encounters Encounter Performer Loca tion Codes Date ([id number]) NURSE/OUTPAT IENT VISIT EST Diagnosis: Encounter for general adult medical examination without abnormal findings[ICD10: Z00.00] Sahil Ayala [employer] CPT-4: 65237 04/19/2019 OFFICE/OUTPATIENT SIT NEW Diagnosis: Enteroviral vesicular pharyngitis[ICD10: B08.5] Diagnosis: Plantar fascial fibromatosis[ICD10: M72.2] Diagnosis: Sacrococcygeal disorders, not elsewhere classified[ICD10: M53.3] Sahil ANDRES [employer] CPT-4: 43661 04/15/2019 Plan of Care Planned Activity Notes C odes Status Date Visit NOS Plan: Plan Notes: Saline nasal flushes prn. Tyle... Patient Instructions: Recommend updated fasting lab-... 04/15/2019 Visit Diagnosis Plan: Enteroviral vesicular pharyngiti s Discussion: Supportive care--salt water gargles, chloraseptic spray, dayquil/nyquil as needed, notify if more mouth sores develop ICD-9 : 074.0 ICD-10 : B08.5 04/15/2019 Visit Diagnosis Plan: Plantar fascial fibromatosis Discussion: Stretches, Ice, Heal Arch Insert Topical voltaren gel Will return if persists for injections Also discussed podiatry eval if persists and possible custom arch supports ICD-9 : 728.71 ICD-10 : M72.2 04/15/2019 Visit Diagnosis Plan: Sacrococcygeal dis orders, not elsewhere classified Discussion: Recommend massage/stretches/ chiropractor ICD-9 : 724.6 ICD-10 : M53.3 04/15/2019 Appointment: Sahil Andres WPtel: [facility] [place] [facility] [facility] 04/15/2019 Patient Education: Voltaren- OptimizeRX Coupon [id number] [email or web address] Completed 04/15/2019 Care Plan: Referral Order SNOMED-CT : 533139969 Pending 04/15/2019 Referral: Jess Dietrich WPtel: [facility] [address] [place] Referral Appointment Requested Instructions Comment Recommend updated fa sting lab--patient will check with insurance on which lab she needs to go to and get back with us on where to send the order Will also refer to PRODUCT PROMOTER SALES PERSON for fwup since has not seen PRODUCT PROMOTER SALES PERSON since October 2017 which was a fwup after a miscarriage.
--- OUTSIDE RECORDS SUMMARY | 2020-01-28 12:25 | XMS REPORT | CCD ---
Author Author Jess Andres D.O. Organization [facility] Address [address] [place] [address] Phone Care Team Providers Care Air Quality Engineer Name Role Phone PP Unavailable CCM Unavailable Summary Purpose Interface Exchange Insurance Providers Payer name Policy type / Coverage type Covered green party ID Effective Begin Date Effective End Date [facility] [id number] Unknown Family history Grandfather Diagnosis Age At [...] Unknown 3 04/15/2019 Employment Unknown Currently employed [employer] 04/15/[address]: 064637159 Has never smoked or chewed tobacco 04/15/[address]: 406425 Currently drinks alcohol 04/15 Frequency of drinks SNOMED CT: 055125063 1-4 drinks per week 07/2019 Has the [...] Instructions Voltaren 1 % topical gel RxNorm: 272678 1 Gram(s) TOP QID to foot 0 04/15/2019 08/12/2019 Inactive Vitamin D2 oral RxNorm: 4018 oral No Start Date Active Prometrium 200 mg capsule RxNorm: 980590 1 Capsule(s) PO as nee ded No Start Date Active Multivitamin And Mineral tablet RxNorm: 1 Tablet(s) PO QD No Start Date Active Medication Administered No Medication Administered data Immunizations No Immunization data Results Observation Observation Code Item Item Code Result Date S ervice Location COMPREHENSIVE METABOLIC 86790 AST 16 U/L 2018 Unknown COMPREHENSIVE METABOLIC 88761 ALT 19 U/L 2018 Unknown COMPREHENSIVE METABOLIC 94898 BUN 13 mg/dL 2018 Unknown COMPREHENSIVE METABOLIC 91659 ALBUMIN 3.8 g/dL 2018 Unknown COMPREHENSIVE METABOLIC 01791 CHLORIDE 105 mmol/L 04/22 Unknown COMPREHENSIVE METABOLIC 69906 Bili Total 0.5 mg/dL 04/22 Unknown COMPREHENSIVE METABOLIC 94819 ALK PHOS 58 U/L 2018 Unknown COMPREHENSIVE METABOLIC 56893 SODIUM 141 mmol/L 04/22 Unknown COMPREHENSIVE METABOLIC 58930 CREATININE 0.78 mg/dL 04/04 Unknown COMPREHENSIVE METABOLIC 44524 CALCIUM 8.9 mg/dL 2018 Unknown COMPREHENSIVE METABOLIC 37238 POTASSIUM 4.1 mmol/L 04/22 Unknown COMPREHENSIVE METABOLIC 47840 Total Protein 6.4 g/dL Unknown COMPREHENSIVE METABOLIC 05066 Glucose 96 mg/dL 2018 Unknown COMPREHENSIVE METABOLIC 51813 Bicarbonate 27 mmol/L 04/04 Unknown COMPREHENSIVE METABOLIC 92055 AGAP 9 mmol/L 2018 Unknown [facility] 81702 Cholesterol 120 mg/dL 04/22/2019 Unkno wn [facility] 30763 Triglyceride 107 mg/dL 04/22/2019 Unkn own [facility] 75824 HDL CHOLESTEROL 39 mg/dL 04/22/2019 U nknown [facility] 95191 Chol/HDL Ratio 3.08 ratio 04/22/2019 U nknown [facility] 82962 NON-HDL Chol 81 mg/dL 04/22/2019 Unkn own [facility] 81172 LDL Cholesterol 60 mg/dL 04/22/2019 U nknown GFR CALC 1154199 GFR Non Afr Amr >60 mL/min 04/22/2019 Un known GFR CALC 8563648 GFR Afr Amr >60 mL/min 04/22/2019 Unknow n COMPLETE BLOOD COUNT 0203119 WBC 8.9 10e9/L 04/19/20 19 Unknown COMPLETE BLOOD COUNT 1322153 RBC 4.77 10e12/L 2018 Unknown COMPLETE BLOOD COUNT 8205319 HEMOGLOBIN 13.4 g/dL 04/19/20 19 Unknown COMPLETE BLOOD COUNT 8949440 HEMATOCRIT 41.2 % 04/19/20 19 Unknown COMPLETE BLOOD COUNT 4028107 MCV 86.4 fL 9 Unknown COMPLETE BLOOD COUNT 1393689 MCH 28.1 pg 9 Unknown COMPLETE BLOOD COUNT 1495995 MCHC 32.5 g/dL 9 Unknown COMPLETE BLOOD COUNT 9352071 PLATELET COUNT 292 10e9/L Unknown COMPLETE BLOOD COUNT 0014736 Mean Plt Volume 9.4 fL Unknown COMPLETE BLOOD COUNT 2280069 Neut Auto 68.4 % 9 Unknown COMPLETE BLOOD COUNT 4177776 Lymph Auto 24.4 % 04/19/20 19 Unknown COMPLETE BLOOD COUNT 6472623 [place] Auto 5.2 % 9 Unknown COMPLETE BLOOD COUNT 7341595 RDW 13.5 % 9 Unknown COMPLETE BLOOD COUNT 9726938 Eos Auto 1.7 % 9 Unknown COMPLETE BLOOD COUNT 0044348 Baso Auto 0.3 % 9 Unknown COMPLETE BLOOD COUNT 5095762 Neutrophil Abs 6.09 10e9/L Unknown COMPLETE BLOOD COUNT 7053485 Lymphocyte Abs 2.17 10e9/L Unknown COMPLETE BLOOD COUNT 4380480 Monocyte Abs 0.46 10e9/L 04/04 Unknown COMPLETE BLOOD COUNT 4199646 Eosinophil Abs 0.15 10e9/L Unknown COMPLETE BLOOD COUNT 5183963 RDW-SD 41.2 fL 9 Unknown COMPLETE BLOOD COUNT 4607750 Basophil Abs 0.03 10e9/L 04/04 Unknown FREE T4 24552 T4 Free 0.90 ng/dL 04/19/2019 Unknown THYROID STIMULATING HORMONE 19397 TSH 1.939 uIU/mL 04/19/2019 Unknown Procedures Procedure Codes Date INFLUENZA ASSAY W/OPTIC CPT-4: 01133 08/26/2019 ROUTINE VENIPUNCTURE CPT-4: 34023 04/22/2019 COMPREHEN METABOLIC PANEL CPT-4: 04715 04/22/2019 LIPID PANEL CPT-4: 06471 04/22/2019 ROUTINE VENIPUNCTURE CPT-4: 35745 04/19/2019 ASSAY OF FREE THYROXINE CPT-4: 01867 04/19/2019 ASSAY THYROID STIM HORMONE CPT-4: 58892 04/19/2019 COMPLETE CBC W/AUTO DIFF WBC CPT-4: 66607 04/19/2019 Vital Signs Date Vital 08/26/2019 Blood Pressure 1: 125/80 Code: 8480-6 Heart Rate 1: 117 bpm Respiratory Rate: 16 bpm SpO2: 98% Temperature: 37.3 (C) / 99.2 (F) We ight: 218 lbs 04/15/2019 Blood Pressure 1: 132/80 Code: 8480-6 BMI: 39.6 Code: 27894-3 Heart Rate 1: 72 bpm Height: 5'2" Respiratory Rate: 16 bpm SpO2: 98% Tempera ture: 36.7 (C) / 98.0 (F) Weight: 218 lbs Functional Status No Functional Status data Reason For Visit Reason For Visit Effective Dates Notes cough 08/26/2019 lab draw 04/22/2019 lab draw 04/19/2019 ~generic 04/15/2019 New Patient---establ [facility] care Encounters Encounter Performer Location Codes Date (53218) OFFICE/OUTPATIENT VISIT EST Diagnosis: Acute suppurative otitis media of left ear[ICD10: H66.002] Diagnosis: Upper respiratory infection[ICD10: J06.9] Jazmine [facility]RES [facility] CPT-4: 83017 08/26/2019 ([id number]) NURSE/OUTPATIENT VISIT EST Diagnosis: Encounter for general adult medical examination without abnormal findings[ICD10: Z00.00] Ana Maria ANDRES [employer] CPT-4: 24450 04/22/2019 ([id number]) NURSE/OUTPATIENT VISIT EST Diagnosis: Encounter for general adult medical examination without abnormal findings[ICD10: Z00.00] Ana Maria ANDRES DO [employer] CPT-4: 38664 04/19/2019 OFFICE/OUTPATIENT VISIT NEW Diagnosis: Enteroviral vesicular pharyngitis[ICD10: B08.5] Diagnosis: Plantar fascial fibromatosis[ICD10: M72.2] Diagnosis: Sacrococcygeal disorders, not elsewhere classified[ICD10: M53.3] Ana Maria ANDRES [employer] CPT-4: 10841 04/15/2019 Plan of Care Planned Activity Notes [...] 08/26/2019 [facility] [phone] [facility] [facility] 04/22/2019 Appointment: Ana Maria [facility] [phone] [facility] [facility] 04/19/2019 Visit Diagnosis Plan: [...] M53.3 04/15/2019 Appointment: Ana Maria Andres WPtel: [facility] [place] NEW PATIENT 04/15/2019 Patient Education: Voltaren- OptimizeRX Coupon [id number] [email or web address] Completed 04/15/2019 Care Plan: Referral Order SNOMED-CT : 30 5110358 Pending 04/15/2019 Referral: Jess Dietrich WPtel: Via [address] Referral Appointment Requested Instructions No Instructions Medical Equipment No Medical Equipment data Health Concerns Section Health Concerns data not found Goals Section Goals data not found Interventions Section Interventions data not found Health Status Evaluations/Outcomes Section Health Status Evaluations/Outcomes data not found Advance Directives No Advance Directive data
[2020-01-28] MEDS ORDERED: MIDAZOLAM 2 MG/2 ML (VERSED) VIAL ONE (12:26)
[2020-01-28] MEDS ORDERED: fentaNYL INJECTION 100 MCG/2 ML AMP ONE (12:26)
--- OUTSIDE RECORDS SUMMARY | 2020-01-28 12:26 | XMS REPORT | CCD ---
Author Author Jess Andres D.O. Organization [facility] Address [address] [place] [address] Phone Care Team Providers Care Veneer Cutter Name Role Phone PP Unavailable CCM Unavailable Summary Purpose Interface Exchange Insurance Providers Payer name Policy type / Coverage type Covered democrat ID Effective Begin Date Effective End Date Blue Cross Blue [facility] Blue Cross/[facility] [id number] Un known Family history Grandfather Diagnosis Age [...] 3 04/15/2019 Employment Unknown Curre ntly employed [employer] [employer] 04/15/[address]: 609171349 Has never smoked or chewed tobacco 04/15/[address]: 118445 Currently drinks alcohol 04/15/2019 Frequency of drinks SNOMED CT: 429408894 1-4 drinks per week 04/15/2019 Has the [...] Codes Condition Status Onset Date Resolved Date Enteroviral vesicula r pharyngitis ICD-9: 074.0 ICD-10: B08.5 Active 04/15/2019 Unknown Plantar fascial fibr omatosis ICD-9: 728.71 ICD-10: M72.2 Active 04/15/2019 Unknown Sacrococcygeal disor ders, not elsewhere classified ICD-9: 724.6 ICD-10: M53.3 Active 04/15/2019 Unknown Problems Condition Codes Effectiv e Dates Condition Status Enteroviral vesicula r pharyngitis ICD-9: 074.0 ICD-10: B08.5 04/15/2019 Active Plantar fascial fibr omatosis ICD-9: 728.71 ICD-10: M72.2 04/15/2019 Active Sacrococcygeal disor ders, not elsewhere classified ICD-9: 724.6 ICD-10: M53.3 04/15/2019 Active Medications Medication Codes Instruc tions Start Date Stop Date Sta tus Fill Instructions Voltaren 1 % topical gel RxNorm: 953295 1 Gram(s) TOP QID to foot 04/15/2019 08/12/2019 Active Vitamin D2 oral RxNorm: 4018 oral No Start Date Active Prometrium 200 mg ca psule RxNorm: 910995 1 Capsule(s) PO as needed No Start Date Active Multivitamin And Min eral tablet RxNorm: 1 Tablet(s) PO QD No Start Date Active Medication Administered No Medication Administered data Immunizations No Immunization data Assessments Condition Codes Effectiv e Dates Sacrococcygeal disorders, not elsewhere classified ICD-10: M53.3 ICD-9: 724.6 04/15/2019 Enteroviral vesicular pharyngitis IC D-10: B08.5 ICD-9: 074.0 04/15/2019 Plantar fascial fibromatosis ICD-10: M72.2 ICD-9: 728.71 04/15/2019 Reason For Visit Reason For Visit Effective Dates Notes ~generic 04/15/2019 New Patient---establishing care Results No Results data Review of Systems System Result Effective Dates [...] small ulcer to right of uvula Procedures No Procedures data Vital Signs Date Vital 04/15/2019 Blood Pressure 1: 132/80 Code: 8480-6 BMI: 39.6 Code: 90770-0 Heart Rate 1: 72 bpm Height: 5'2" [...] Encounters Encounter Performer Loca tion Codes Date OFFICE/OUTPATIENT SIT NEW Diagnosis: Enteroviral vesicular pharyngitis[ICD10: B08.5] Diagnosis: Plantar fascial fibromatosis[ICD10: M72.2] Diagnosis: Sacrococcygeal disorders, not elsewhere classified[ICD10: M53.3] Sahil ANDRES DO [facility] CPT-4: 82601 04/15/2019 Plan of Care Planned Activity Notes [...] ICD-9 : 724.6 ICD-10 : M53.3 04/15/2019 Patient Education: [employer] Coupon [id number] [email or web address]/samplemd/resources/getResource/61/[email or web address] Completed 04/15/2019 Care Plan: Referral Order SNOMED-CT : 626067026 Pending 04/15/2019 Referral: Jess Dietrich WPtel: [facility] [address] [place] Referral Appointment Requested Instructions Comment Recommend updated fa sting lab--patient will check with insurance on which lab she needs to go to and get back with us on where to send the order Will also refer to ACUTE COORDINATOR for fwup since has not seen ACUTE COORDINATOR since October 2017 which was a fwup after a miscarriage.
--- OUTSIDE RECORDS SUMMARY | 2020-01-28 12:26 | XMS REPORT | CCD ---
Author Author Jess Andres D.O. Organization [facility] Address [address] [place] [address] Phone Care Team Providers Care Management And Budget Analyst Name Role Phone PP Unavailable CCM Unavailable Summary Purpose Interface Exchange Insurance Providers Payer name Policy type / Coverage type Covered alliance party ID Effective Begin Date Effective End Date Blue Cross Blue [facility] Blue Cross/[facility] [id number] Un known Family history Grandfather Diagnosis Age [...] 3 04/15/2019 Employment Unknown Curre ntly employed [employer] 04/15/[address]: 557751263 Has never smoked or chewed tobacco 04/15/[address]: 736252 Currently drinks alcohol 04/15/2019 Frequency of drinks SNOMED CT: 563698002 1-4 drinks per week 04/15/2019 Has the [...] Instructions Voltaren 1 % topical gel RxNorm: 787639 1 Gram(s) TOP QID to foot 04/15/2019 08/12/2019 Active Vitamin D2 oral RxNorm: 4018 oral No Start Date Active Prometrium 200 mg ca psule RxNorm: 846156 1 Capsule(s) PO as needed No Start [...] 04/19/2019 ~generic 04/15/2019 New Patient---establishing care Results No [...] Procedures Procedure Codes Date ROUTINE VENIPUNCTURE CPT-4: 55361 04/19/2019 ASSAY OF FREE THYROXINE CPT-4: 07947 04/19/2019 ASSAY THYROID STIM H ORMONE CPT-4: 52979 04/19/2019 COMPLETE CBC W/AUTO DIFF WBC CPT-4: 07593 04/19/2019 Vital Signs Date Vital 04/15/2019 Blood Pressure 1: 132/80 Code: 8480-6 BMI: 39.6 Code: 32832-4 Heart Rate 1: 72 bpm Height: 5'2" [...] Encounters Encounter Performer Loca tion Codes Date (06056) NURSE/OUTPAT IENT VISIT EST Diagnosis: Encounter for general adult medical examination without abnormal findings[ICD10: Z00.00] Ana Maria ANDRES DO [facility] CPT-4: 35395 04/19/2019 OFFICE/OUTPATIENT SIT NEW Diagnosis: Enteroviral vesicular pharyngitis[ICD10: B08.5] Diagnosis: Plantar fascial fibromatosis[ICD10: M72.2] Diagnosis: Sacrococcygeal disorders, not elsewhere classified[ICD10: M53.3] [facility]RES [facility] CPT-4: 68083 04/15/2019 Plan of Care Planned Activity Notes [...] M53.3 04/15/2019 Appointment: Ana Maria Andres WPtel: [facility] NEW PATIENT 04/15/2019 Patient Education: Voltaren- [employer] Coupon [id number] [email or web address]/samplemd/resources/getResource/61/[email or web address] Completed 04/15/2019 Care Plan: Referral Order SNOMED-CT : 235308317 Pending 04/15/2019 Referral: Jess Dietrich WPtel: Via [facility] [address] [place] Referral Appointment Requested Instructions Comment Recommend updated fa sting lab--patient will check with insurance on which lab she needs to go to and get back with us on where to send the order Will also refer to SEAT COVER INSTALLER for fwup since has not seen SEAT COVER INSTALLER since October 2017 which was a fwup after a miscarriage.
--- OUTSIDE RECORDS SUMMARY | 2020-01-28 12:26 | XMS REPORT | CCD ---
Author Author Jess Andres D.O. Organization [facility] Address [address] [place] [address] Phone Care Team Providers Care Business Instructor Name Role Phone PP Unavailable CCM Unavailable Summary Purpose Interface Exchange Insurance Providers Payer name Policy type / Coverage type Covered alliance party ID Effective Begin Date Effective End Date Blue Cross Blue [facility] [id number] Un known Family history Grandfather Diagnosis Age [...] 3 04/15/2019 Employment Unknown Curre ntly employed [employer] 04/15/[address]: 955196689 Has never smoked or chewed tobacco 04/15/[address]: 880064 Currently drinks alcohol 04/15/2019 Frequency of drinks SNOMED CT: 419072992 1-4 drinks per week 04/15/2019 Has the [...] Instructions Voltaren 1 % topical gel RxNorm: 989746 1 Gram(s) TOP QID to foot 04/15/2019 08/12/2019 Active Vitamin D2 oral RxNorm: 4018 oral No Start Date Active Prometrium 200 mg ca psule RxNorm: 807577 1 Capsule(s) PO as needed No Start [...] Procedures Procedure Codes Date ROUTINE VENIPUNCTURE CPT-4: 86662 04/19/2019 ASSAY OF FREE THYROXINE CPT-4: 57880 04/19/2019 ASSAY THYROID STIM H ORMONE CPT-4: 46884 04/19/2019 COMPLETE CBC W/AUTO DIFF WBC CPT-4: 27253 04/19/2019 Vital Signs Date Vital 04/15/2019 Blood Pressure 1: 132/80 Code: 8480-6 BMI: 39.6 Code: 74747-9 Heart Rate 1: 72 bpm Height: 5'2" [...] Encounters Encounter Performer Loca tion Codes Date (02672) NURSE/OUTPAT IENT VISIT EST Diagnosis: Encounter for general adult medical examination without abnormal findings[ICD10: Z00.00] Ana Maria ANDRES DO [facility] CPT-4: 22351 04/19/2019 OFFICE/OUTPATIENT SIT NEW Diagnosis: Enteroviral vesicular pharyngitis[ICD10: B08.5] Diagnosis: Plantar fascial fibromatosis[ICD10: M72.2] Diagnosis: Sacrococcygeal disorders, not elsewhere classified[ICD10: M53.3] [facility]RES [facility] CPT-4: 01276 04/15/2019 Plan of Care Planned Activity Notes [...] M53.3 04/15/2019 Appointment: Ana Maria Andres WPtel: [facility] [facility] 04/15/2019 Patient Education: Voltaren- [employer] Coupon [id number] [email or web address]/samplemd/resources/getResource/61/[email or web address] Completed 04/15/2019 Care Plan: Referral Order SNOMED-CT : 244387033 Pending 04/15/2019 Referral: Jess Dietrich WPtel: [facility] [address] [place] Referral Appointment Requested Instructions Comment Recommend updated fa sting lab--patient will check with insurance on which lab she needs to go to and get back with us on where to send the order Will also refer to FIRE PREVENTION CHIEF for fwup since has not seen FIRE PREVENTION CHIEF since October 2017 which was a fwup after a miscarriage.
--- OUTSIDE RECORDS SUMMARY | 2020-01-28 12:26 | XMS REPORT | Continuity of Care Document ---
Author Organization Unknown Address Unknown Phone Unavailable Allergies Active Description Code Type Severity Reaction Onset Reported/Identified Relationship to Patient Clinical Status Yes No Known Drug Allergies [id number] Drug Allergy Unknown N/A 01/25/2020 Medications There is no data. Problems Date Dx Coded Attending Type Code Diagnosis Diagnosed By 09/28/2019 ROXI FENG DO Ot Z12.3 1 ENCNTR SCREEN MAMMOGRAM FOR MALIGNANT NE 10/01/2019 W H66.002 Ac [place] suppurative otitis media of left ear Mick, Jazmine 10/01/2019 W J06.9 Uppe r respiratory infection Mick, Jazmine 10/18/2019 ROXI FENG DO Ot Z12.3 1 ENCNTR SCREEN MAMMOGRAM FOR MALIGNANT NE 01/21/2020 ROXI FENG DO Ot Z12.3 1 ENCNTR SCREEN MAMMOGRAM FOR MALIGNANT NE Procedures There is no data. Results There is no data. Encounters ACCT No. Visit Date/Time Discharge Status Pt. Type Provider Facility Loc./Unit Complaint [id number] 05/13/2019 13:12:34 05/13/2019 23:59:5 9 CLS Outpatient [id number] 01/26/2020 05:34:00 12:28:00 DIS Outpatient ROXI FENG DO Via [facility] PREOP ABNORMAL UTERINE BLEEDI NG [id number] 01/21/2020 08:46:00 23:59:59 CLS Outpatient ROXI FENG DO [facility] RAD AUB [id number] 09/23/2019 07:55:00 020 23:59:59 CLS Outpatient ROXI FENG DO [facility] RAD SCREENING [id number] 01/28/2020 13:30:00 P EN Preadmit ROXI FENG DO Via [facility] SDC ABNORMAL UTERINE BLEEDING
[2020-01-28] MEDS ORDERED: proPOfol 200 MG/20 ML (DIPRIVAN) VIAL IV ONE (12:27)
[2020-01-28] MEDS ORDERED: ONDANSETRON 4 MG/2 ML (SDV) Z0FRAN ONE (12:27)
[2020-01-28] MEDS ORDERED: DEXAMETHASONE 10 MG/ML (DECADRON) 1 ML VIAL ONE (12:27)
[2020-01-28] MEDS ORDERED: SEVOFLURANE (ULTANE) 15 ML INHAL SOLN ONE ×3 (12:27→14:43)
[2020-01-28] MEDS ORDERED: LIDOCAINE PF 2% 5 ML (XYLOCAINE) VIAL ONE (12:27)
[2020-01-28 13:04] LABS: BASOPHILS % (AUTO) 1 % (0-10); EOSINOPHILS # (AUTO) 0.2 10^3/uL (0.0-0.3); EOSINOPHILS % (AUTO) 2 % (0-10); HEMATOCRIT 29 % (35-52); HEMOGLOBIN 8.8 G/DL (11.5-16.0); LYMPHOCYTES # (AUTO) 2.5 X 10^3 (1.0-4.0); LYMPHOCYTES % (AUTO) 36 % (12-44); MEAN CORPUSCULAR HEMOGLOBIN 29 PG (25-34); MEAN CORPUSCULAR HGB CONC 30 G/DL (32-36); MEAN CORPUSCULAR VOLUME 96 FL (80-99); MONOCYTES # (AUTO) 0.4 X 10^3 (0.0-1.0); MONOCYTES % (AUTO) 6 % (0-12); NEUTROPHILS # (AUTO) 3.9 X 10^3 (1.8-7.8); NEUTROPHILS % (AUTO) 55 % (42-75); PLATELET COUNT 277 10^3/uL (130-400); RED CELL DISTRIBUTION WIDTH 19.2 % (10.0-14.5)
[2020-01-28] MEDS ORDERED: KETOROLAC 30 MG/ML VIAL IVP ONE (14:45)
--- NOTE | 2020-01-28 14:47 | Anesthesia-General Post-Op ---
General Patient Condition Mental Status/LOC: Same as Preop Cardiovascular: Satisfactory Nausea/Vomiting: Absent Respiratory: Satisfactory Pain: Controlled Complications: Absent Post Op Complications Complications None Follow Up Care/Instructions Patient Instructions None needed. Anesthesia/Patient Condition Patient Condition Patient is doing well, no complaints, stable vital signs, no apparent adverse anesthesia problems. No complications reported per nursing. DAVEY BADILLO CRNA Jan 28, 2020 14:47
--- NOTE | 2020-01-28 14:51 | Operative Report ---
Operative Report Date of Procedure/Surgery Jan 28, 2020 Surgeon (s) ROXI FENG DO Sample Driller (s): N Post-Operative Diagnosis multiple endometrial polyps Procedure Performed hysteroscopy, dilation and curettage Description of Procedure Anesthesia Type: General Estimated blood loss (mL): 100 Specimen(s) collected/removed endometrial curettings, polyps Description of the Procedure with informed consent the patient was taken to the operating room where general anesthesia was found to be adequate. She was then prepped and draped in the usual sterile fashion in the dorsolithotomy position. A straight cath was used to drain the bladder. a speculum was placed in the vagina and the cervix was grasped with a tenaculum. The uterus was gently sounded to greater than 12 cm. I then inserted the hysteroscope and noted there to be multiple masses. These appeared to be polypoid in appearance and multiple (at least 6). These were 2-3 cm in length and 3-5 mm at the base. I then did multiple passes with the curette and the polyp forceps removing the majority of the polypoid tissue. however, I was unable to remove two of these lesions, so I attempted to do a truclear resection, but the truclear was not working properly, wo I followed up with an additional smaller curette. I was able to remove one more, but at this time, there was noted to be leaking from the hysteroscopy fluid over the floor. Sever hundred ml of fluid. There was not excessive bleeding, but I did have a large excess, thought to be due to the leaking of the hysteroscope fluid. I then decided to halt the procedure. there was one residual polyp but more than 5 were removed. The instruments were removed and the patient was awakened and taken to recovery in stable condition. there was good hemostasis. Findings of the Procedure uterus 12 cm depth multiple endometrial polyps, possibly submucosal fibroids 2940 total deficit 1100 (at least 750-1000ml on the floor due to leaking of the tubing) Allergies and Home Medications Allergies Coded Allergies: No Known Drug Allergies (Unverified , 01/25/20) Home Medications Acetaminophen 500 Mg Tablet, 1,000 MG PO TID Prescribed by: ROXI FENG on 01/28/20 1456 Ferrous Sulfate 325 Mg Tablet, 325 MG PO DAILY, (Reported) Ibuprofen 600 Mg Tablet, 600 MG PO Q6H PRN for PAIN-MILD Prescribed by: ROXI FENG on 01/28/201455 Multivits,Ca,Minerals/Iron/FA 1 Each Tablet, 1 EACH PO DAILY, (Reported) Oxycodone HCl 5 Mg Tablet, 5 MG PO Q6H Prescribed by: ROXI FENG on 01/28/201455 Progesterone 200 Mg Cap, 200 MG PO DAILY, (Reported) Patient Home Medication List Home Medication List Reviewed: ROXI Martin DO Jan 28, 2020 14:51
[2020-01-28] MEDS ORDERED: KETOROLAC 30 MG/ML VIAL ONE (14:53)
[2020-01-28] MEDS ORDERED: ACET-2267 PO (14:56)
[2020-01-28] MEDS ORDERED: IBUP-1773 PO (14:56)
[2020-01-28] MEDS ORDERED: OXYC5TAB96 PO (14:56)
--- NOTE | 2020-01-28 14:59 | Discharge Inst-Women's Service ---
Discharge Inst-Women's Serv Depart Medication/Instructions New, Converted or Re-Newed RX: RX on Chart Final Diagnosis multiple endometrial polyps abnormal uterine bleeding Problems Reviewed?: Yes Consults/Follow Up Additional Follow Up: Yes (7-10 days (make appointment to discuss pathology after 02/06/20)) Activity Driving Instructions: No Driving for 24 Hours NO SMOKING: NO SMOKING Nothing Inside Vagina: No Douching, No [place], No Tampons Other Activity expect to have spotting or light bleeding for the next 7-10 days. you may pass tissue. If you feel faint, have syncope, are passing large clots, call the office and you may present to the ED. Diet Discharge Diet: No Restrictions Symptoms to Report to : Swelling Increased, Bleeding Excessive, Pain Increased, Fever Over 101 Degrees F, Vaginal Bleeding Increase, Cramps in Feet or Legs, Vaginal Discharge ROXI Espino DO Jan 28, 2020 14:59
[2020-01-28] MEDS ORDERED: morphine INJ 10 MG/ML 1ML (SYR OR VIAL) IVP ONE (15:00)
[2020-01-28] MEDS ORDERED: ONDANSETRON 4 MG/2 ML (SDV) Z0FRAN IVP PRN (15:00)
[2020-01-28] MEDS ORDERED: MEPERIDINE (DEMEROL) INJ 50 MG/ML IVP ONE (15:00)
== END 2020-01-28 16:35 | disposition home or self-care (01) ==
LOC: SDC 12:00
PROVIDERS: ATTEND Obstetrics & Gynecology
DX: D26.1 Other benign neoplasm of corpus uteri (principal); E28.2 Polycystic ovarian syndrome; G43.909 Migraine, unspecified, not intractable, without status migrainosus; E66.9 Obesity, unspecified; Z68.41 Body mass index [BMI] 40.0-44.9, adult; Z82.3 Family history of stroke; Z83.3 Family history of diabetes mellitus; Z79.891 Long term (current) use of opiate analgesic; Z79.899 Other long term (current) drug therapy
CPT/HCPCS: 36415; 84703; 85025; 87081; 88305

== ENCOUNTER → 2021-06-25 | Outpatient (CLI) | payer OTHER, BC ==
[~2021-06-25] MED LIST changes: +ACET-2267 PO; +IBUP-1773 PO; +OXC5T PO
--- NOTE | 2021-06-25 13:15 | Diagnostic Imaging Report ---
INDICATION: COUGH FATIGUE COMPARISON: None FINDINGS: Frontal and lateral views of the chest demonstrate normal heart size and pulmonary vascularity. The lungs are clear. There are no signs of infiltrate, pleural effusions or pneumothoraces. The visualized osseous structures show no acute abnormalities. IMPRESSION: 1. No acute process. No signs of infiltrates, effusions or pneumothoraces. Dictated by: Dictated on workstation # [id number]
[2021-06-25 13:38] LABS: BASOPHILS # (AUTO) 0.1 10^3/uL (0.0-0.1); BASOPHILS % (AUTO) 1 % (0-10); EOSINOPHILS # (AUTO) 0.2 10^3/uL (0.0-0.3); EOSINOPHILS % (AUTO) 3 % (0-10); HEMATOCRIT 45 % (35-52); HEMOGLOBIN 14.6 g/dL (11.5-16.0); LYMPHOCYTES % (AUTO) 32 % (12-44); MEAN CORPUSCULAR HEMOGLOBIN 29 pg (25-34); MEAN CORPUSCULAR HGB CONC 32 g/dL (32-36); MEAN CORPUSCULAR VOLUME 89 fL (80-99); MEAN PLATELET VOLUME 9.5 fL (9.0-12.2); MONOCYTES # (AUTO) 0.3 10^3/uL (0.0-1.0); MONOCYTES % (AUTO) 5 % (0-12); NEUTROPHILS # (AUTO) 3.7 10^3/uL (1.8-7.8); NEUTROPHILS % (AUTO) 59 % (42-75); PLATELET COUNT 315 10^3/uL (130-400); WHITE BLOOD COUNT 6.4 10^3/uL (4.3-11.0)
== END ==
LOC: RAD 12:33
PROVIDERS: ATTEND Family Medicine
DX: R05.9 Cough, unspecified (principal); R53.83 Other fatigue
CPT/HCPCS: 36415; 71046; 85025; 86738; 87420